=== PATIENT | female | born 1930 | race Caucasian/White ===

== ENCOUNTER 2018-01-05 17:28 | Emergency (ER) | payer OTHER ==
[~2018-01-05] VITALS: Ht 162.6 cm; Wt 77.1 kg
[~2018-01-05 17:28] MED LIST: ESCITALOPRAM10 MG PO; LEVOTHYROXINE0.15 M1 PO; LOSARTAN POTAS100 MG PO; TRAMADOL50 MG PO
[2018-01-05 18:21] LABS: ABSOLUTE BASOPHIL COUNT 0 /CUMM (0.0-0.2); ABSOLUTE EOSINOPHIL COUNT 0 /CUMM (0.0-0.7); ABSOLUTE GRANULOCYTE CT 3.8 /CUMM (1.4-6.5); ABSOLUTE LYMPH COUNT 1.2 /CUMM (1.2-3.4); ABSOLUTE MONOCYTE COUNT 0.6 /CUMM (0.10-0.60); BASOPHIL % 0.8 % (0.0-2.0); EOSINOPHIL % 0.6 % (0-5); GRANULOCYTE % 66.2 % (42.2-75.2); HEMATOCRIT 41.8 % (37-47); MEAN CORPUSCULAR HGB 30.9 PG (27.0-31.0); MEAN CORPUSCULAR HGB CONC 33.1 G/DL (33.0-37.0); MEAN CORPUSCULAR VOLUME 93.3 FL (81.0-99.0); MEAN PLATELET VOLUME 7.4 FL (7.4-10.4); PLATELET COUNT 235 /CUMM (130-400); RBC DISTRIBUTION WIDTH 15.6 % (11.5-14.5); RED BLOOD CELL CT 4.48 /CUMM (4.20-5.40); WHITE BLOOD CELL COUNT 5.7 /CUMM (4.8-10.8)
--- NOTE | 2018-01-05 19:39 | ED GI/GU/ABDOMINAL COMPLAINT ---
History of Present Illness General Chief Complaint: Abdominal Pain/Flank Pain Stated Complaint: ABD PAIN Source: patient, family Exam Limitations: no limitations Vital Signs & Intake/Output Vital Signs & Intake/Output Vital Signs Date Time Temp Pulse Resp B/P B/P Pulse O2 O2 Flow FiO2 Mean Ox Delivery Rate 01/05 2123 86 18 187/82 95 Room Air 01/053 90 16 200/95 96 Room Air 01/05 1754 97.1 76 18 192/94 94 Room Air Room Air Allergies Coded Allergies: NO KNOWN ALLERGIES (05/09/11) Reconcile Medications Escitalopram Oxalate 10 MG TABLET 1 TAB PO DAILY MENTAL HEALTH (Reported) Levothyroxine Sodium 0.15 MG TAB 1 TAB PO DAILY AC THYROID (Reported) Losartan Potassium 100 MG TABLET 1 TAB PO DAILY HEART (Reported) TRAMADOL HCL (Tramadol) 50 MG TAB 1 TAB PO Q6HR PRN PAIN Triage Note: TRIAGE: 87 Y/O FEMALE PRESENTS C/O 10/10 LEFT LOWER ABDOMINAL PAIN SINCE 0500 THIS MORNING. REPORTS "I THOUGHT IT WAS GAS. BUT IT'S NOT." Triage Nurses Notes Reviewed? yes ? N Is pt currently ? No Onset: Gradual Duration: getting worse Timing: recent history Quality/Severity: sharpness, severe, stabbing Severity Numbers: 7 Location: left lower quadrant Radiation: no radiation HPI: Patient is a 87-year-old female with a past medical history of left-sided breast cancer in remission, hypothyroidism hypertension who presents emergency room with a 5-7 day history of gradually worsening waxing and waning left lower quadrant abdominal localized pain. Last bowel movement was yesterday no blood no melena noted. Denies any fever chills chest pain shortness breath back pain dysuria hematuria vaginal bleeding or discharge Patient last received colonoscopy by Dr. COON approximateLY 4 years ago with unremarkable findings patient can tolerate by mouth with no change in symptoms (Erlinda JIMENEZ,Toro) Past History Travel History Traveled to [place] past 21 day No Medical History Any Pertinent Medical History? see below for history Neurological: NONE EENT: NONE Cardiovascular: hypertension Respiratory: NONE Gastrointestinal: diverticulitis, irritable bowel syndrome, pancreatitis Hepatic: NONE Renal: NONE Musculoskeletal: BILATERAL KNEE REPLACE Psychiatric: NONE Endocrine: HYPOTHYROIDISM Blood Disorders: NONE Cancer(s): NONE QUALITY CONTROL CHEMIST/Reproductive: NONE Tetanus Vaccine: 06/07/15 Surgical History Surgical History: appendectomy, knee replacement (B/L) Psychosocial History What is your primary language Chinese Tobacco Use: Never used ETOH Use: denies use Illicit Drug Use: denies illicit drug use Family History Hx Contributory? No (Toro Nova) Review of Systems Review of Systems Constitutional: Reports: no symptoms. EENTM: Reports: no symptoms. Respiratory: Reports: no symptoms. Cardiovascular: Reports: no symptoms. GI: Reports: see HPI, abdominal pain. Genitourinary: Reports: no symptoms. Musculoskeletal: Reports: no symptoms. Skin: Reports: no symptoms. Neurological/Psychological: Reports: no symptoms. Hematologic/Endocrine: Reports: no symptoms. Immunologic/Allergic: Reports: no symptoms. All Other Systems: Reviewed and Negative (Toro Nova) Physical Exam Physical Exam General Appearance: no apparent distress, alert, comfortable Head: atraumatic Eyes: Bilateral: normal appearance. Ears, Nose, Throat, Mouth: moist mucous membrane Neck: normal inspection Respiratory: normal breath sounds, chest non-tender Cardiovascular: regular rate/rhythm Gastrointestinal: normal bowel sounds, soft, LLQ PAIN, NO REBOUND TENDERNESS Extremities: normal range of motion Core Measures ACS in differential dx? No Sepsis Present: No Sepsis Focused Exam Completed? No (Toro Nova) Progress Differential Diagnosis: AAA, AMI, biliary colic, bowel obstruction, colon cancer , cholecystitis, diverticulitis, endometritis, esophageal varices, gastritis, hepatitis, hernia, hemorrhoids, ischemic bowel, inflamm bowel dis, kidney stone, pancreatitis, PID/cervicitis, peptic ulcer, perforated viscous, SBO, UTI/pyelo Plan of Care: Orders Procedure Date/time Status LIPASE 01/05 175 Complete COMPREHENSIVE METABOLIC PANEL 01/05 1757 Complete CBC WITHOUT DIFFERENTIAL 01/05 1757 Complete AMYLASE 01/05 175 Complete Current Medications Sig/Jordan Start time Last Medication Dose Stop Time Status Admin Amoxicillin/ 500 MG ONCE ONE 01/05 2300 UNVr 01/05 Clavulanate Potassium 01/05 2301 2259 (Augmentin) Laboratory Tests 01/05/18 1810: Anion Gap 11, Estimated GFR > 60, BUN/Creatinine Ratio 17.5, Glucose 117 H, Calcium 9.2, Total Bilirubin 0.4, AST 17, ALT 30, Alkaline Phosphatase 69, Total Protein 7.1, Albumin 4.3, Globulin 2.8, Albumin/Globulin Ratio 1.5, Amylase 61, Lipase 62, CBC w Diff NO MAN DIFF REQ, RBC 4.48, MCV 93.3, MCH 30.9, MCHC 33.1, RDW 15.6 H, MPV 7.4, Gran % 66.2, Lymphocytes % 21.7, Monocytes % 10.7 H, Eosinophils % 0.6, Basophils % 0.8, Absolute Granulocytes 3.8, Absolute Lymphocytes 1.2, Absolute Monocytes 0.6, Absolute Eosinophils 0, Absolute Basophils 0 Patient on initial presentation was in no apparent distress resting comfortable at bedside afebrile nontoxic appearing however has left lower quadrant pain CT scan currently is pending blood work was unremarkable patient can tolerate by mouth PT WAS UPDATED ON BLOODWORK CT scan currently is pending discussed handoff with Dr. Perdomo Initial ED EKG: none Hand-Off Endorsed To: Matti Perdomo MD Endorsed Time: 2016 Pending: CT (Toro Nova) Comments: PT AND HER HAVE BEEN UPDATED ON CT AND LABS RESULTS. QUESTIONS HAVE BEEN ANSWERED. (Matti Perdomo MD) Departure Departure Condition: Stable Referrals: Niraj Sims MD (PCP/Family) Departure Forms: Customer Survey General Discharge Information (Toro Nova) Departure Disposition: HOME OR SELF CARE Clinical Impression Primary Impression: Abdominal pain Secondary Impressions: Diverticulitis Additional Instructions: TAKE ANTIBIOTICS PRESCRIBED RETURN IF PAIN WORSENS OR FOR ANY CONCERNS FOLLOW UP WITH YOUR REGULAR DOCTOR Prescriptions: Current Visit Scripts Amoxicillin/Potassium Clav (Augmentin 875-125 Tablet) 1 TAB PO BID #20 TAB PA/SPARKER AND PATCHER Co-Sign Statement Statement: ED Attending supervision documentation- [X] I saw and evaluated the patient. I have also reviewed all the pertinent lab results and diagnostic results. I agree with the findings and the plan of care as documented in the PA's/SPARKER AND PATCHER's documentation. [X] I have reviewed the ED Record and agree with the PA's/SPARKER AND PATCHER's documentation. [] Additions or exceptions (if any) to the PAs/SPARKER AND PATCHER's note and plan are summarized below: [] (Leanne HEATON,Matti Mcmanus)
[2018-01-05 21:23] VITALS: BP 187/82
--- NOTE | 2018-01-05 21:54 | CT SCAN REPORT ---
EXAMINATION: CT ABDOMEN AND PELVIS WITH CONTRAST CLINICAL INFORMATION: Left lower quadrant pain. Question diverticulitis. COMPARISON: 02/02/2016 TECHNIQUE: Multidetector volumetric imaging was performed of the abdomen and pelvis following IV administration of 94 mL of Optiray 320 intravenous contrast. Sagittal and coronal reformatted images were obtained on the technologist's workstation. FINDINGS: LUNG BASES: The visualized lung bases are unremarkable. LIVER, GALLBLADDER, AND BILIARY TREE: The liver is normal in size, shape, and attenuation. No focal hepatic lesion or biliary ductal dilatation is present. There are 2 gallstones present. No evidence of wall thickening, or obvious pericholecystic inflammatory changes. PANCREAS: Normal attenuation of the pancreas, without subjacent inflammatory changes. There is a fluid attenuation cyst posterior to the body/tail junction of the pancreas measuring 4.6 cm, previously measuring 4.9 cm. SPLEEN: Unremarkable. Small splenule present. ADRENAL GLANDS: Stable bulky left adrenal gland. Right adrenal gland appears unremarkable. KIDNEYS AND URETERS: The kidneys are normal in size, shape, and attenuation. No hydronephrosis, hydroureter, or calculi seen. No perinephric stranding. BLADDER: Unremarkable. GASTROINTESTINAL TRACT: Extensive diverticulosis of the sigmoid colon. There is mild haziness in the fat in the deep pelvis, which may reflect minimal changes of diverticulitis. No focal fluid collections. No free air. No bowel obstruction. ABDOMINAL WALL: No significant hernia is appreciated. LYMPH NODES: No pathologically enlarged lymph nodes are seen. VASCULAR: Extensive vascular calcification. Normal caliber aorta. PELVIC VISCERA: Uterus has been removed. No adnexal masses. OSSEOUS STRUCTURES: Degenerative changes of the spine. IMPRESSION: 1. Sigmoid diverticulosis, with possible mild changes of early diverticulitis. 2. Thin-walled 4.6 cm cyst posterior to the pancreas, slightly smaller as compared to previous. 3. Cholelithiasis without cholecystitis.
[2018-01-05] MEDS ORDERED: AUGMENTIN 875-1 EACH PO (23:00)
== END 2018-01-05 23:08 ==
LOC: ERH 17:28
PROVIDERS: Emergency Medicine
DX: K57.92 Diverticulitis of intestine, part unspecified, without perforation or abscess without bleeding (principal); I10 Essential (primary) hypertension; E03.9 Hypothyroidism, unspecified
CPT/HCPCS: 74177; 96374; 96375; J2405; J3490

== ENCOUNTER 2018-05-13 14:32 | Emergency (ER) | payer OTHER ==
[~2018-05-13] VITALS: Ht 165.1 cm; Wt 72.6 kg
[~2018-05-13 14:32] MED LIST changes: +AUGMENTIN 875-1 EACH PO
[2018-05-13 14:36] VITALS: BP 185/78
--- NOTE | 2018-05-13 17:18 | CT SCAN REPORT ---
EXAMINATION: CT ABDOMEN AND PELVIS WITHOUT CONTRAST CT LUMBAR SPINE WITHOUT CONTRAST CLINICAL INFORMATION: Lower back pain radiating to bilateral legs. COMPARISON: 01/05/2018 TECHNIQUE: A noncontrast CT of the abdomen and pelvis was performed with sagittal and coronal reformats. A noncontrast CT of the lumbar spine was performed with sagittal and coronal reformats. TOTAL DLP: 1144 mGy-cm FINDINGS: CT ABDOMEN AND PELVIS: The visualized lung bases are clear. Redemonstration of a gallstone without biliary ductal dilatation. The unenhanced liver, spleen, adrenal glands, and kidneys are unremarkable. No hydronephrosis or renal calculi. The pancreas appears normal. Redemonstration of a 4.8 cm cyst or pseudocyst along the posterior inferior aspect of the pancreatic tail. No change. Prominent sigmoid diverticulosis. No focal inflammatory process or obstruction. No adenopathy or ascites. Diffuse atherosclerotic calcifications. Small coarse calcifications in the right pelvis may be of adnexal origin, unchanged. The uterus is absent. CT LUMBAR SPINE: Normal lumbar lordosis and alignment. [id number] degenerative disc disease throughout the lumbar spine, with disc space narrowing most pronounced at L2-L3. There is no acute fracture. Diffuse facet arthropathy and degenerative change at the junction of the spinous processes. There is chondrocalcinosis along the ligamentum flavum and posterior disc margins, with bulging at L2-L3, L3-L4, and L4-L5. There is associated pysb-ws-vlrlfiyc narrowing of the central canal and neural foramina, most prominently involving the right L3-L4 neural foramen. This is unchanged. IMPRESSION: CT LUMBAR SPINE: Ijbh-lq-vxxmwffn degenerative disc disease and moderate-severe facet arthropathy throughout the lumbar spine with associated central and neural foraminal narrowing, most prominent on the right at L3-L4. An MRI would better evaluate for stenoses or disc protrusions as a cause of radiculopathy. No acute osseous abnormality. CT ABDOMEN AND PELVIS: 1. Extensive atherosclerotic calcifications. 2. Redemonstration of a simple-appearing, 4.8 cm cyst/pseudocyst along the pancreatic tail. No change. 3. Cholelithiasis. 4. No hydronephrosis.
--- NOTE | 2018-05-13 17:35 | ED GENERAL ADULT ---
History of Present Illness General Chief Complaint: Lower Extremity Injury Stated Complaint: SENT IN BY MD FOR BACK PAIN AND L LEG PAIN Source: patient Exam Limitations: no limitations Vital Signs & Intake/Output Vital Signs & Intake/Output Vital Signs Date Time Temp Pulse Resp B/P B/P Pulse O2 O2 Flow FiO2 Mean Ox Delivery Rate 05/13 1707 Room Air 05/13 1436 97.7 102 18 185/78 95 Room Air Room Air ED Intake and Output 05/14 0000 05/13 1200 Intake Total Output Total Balance Patient 160 lb Weight Weight Reported by Patient Measurement Method Allergies Coded Allergies: NO KNOWN ALLERGIES (05/09/11) Reconcile Medications Amoxicillin/Potassium Clav (Augmentin 875-125 Tablet) 875 MG-125 MG TABLET 1 TAB PO BID DIVERTICULITIS Baclofen 20 MG TABLET 1 TAB PO TID PRN PAIN Escitalopram Oxalate 10 MG TABLET 1 TAB PO DAILY MENTAL HEALTH (Reported) Levothyroxine Sodium 0.15 MG TAB 1 TAB PO DAILY AC THYROID (Reported) Losartan Potassium 100 MG TABLET 1 TAB PO DAILY HEART (Reported) Methylprednisolone. (Medrol) 4 MG TAB.DS.PK 1 DP PO AD SCIATICA 6 on day 1 then reduce by one tablet daily until gone Tramadol HCl 50 MG TABLET 1 TAB PO Q6P PRN PAIN TRAMADOL HCL (Tramadol) 50 MG TAB 1 TAB PO Q6HR PRN PAIN Triage Note: PT TO ED WITH C/O "PAIN TO MY TAILBONE, RADIATING TO BOTH CHEEKS". PT AMBULATORY INTO TRIAGE, DENIES FALL OR INJURY TO THE AREA. WENT TO DR MCGOWAN OFFICE AND SENT IN FOR CT OF LUMBAR SPINE. Triage Nurses Notes Reviewed? yes Onset: Abrupt Duration: week(s): (2), constant, continues in ED, getting worse Timing: single episode today Injury Environment: home Severity: moderate, severe Severity Numbers: 7 No Modifying Factors: none LMP (ages 10-50): post menopausal : No Patient currently breastfeeds: No HPI: 88 year female history of osteoarthritis, hypertension presents for evaluation of back pain. Patient reports that symptoms first started about 2 weeks ago and been persistent. She reports pain is located on both sides of her lower back and radiates into her bilateral but and upper legs. The pain is worse with movement and certain positions. She feels like she cannot sit for long periods of time. There is no trauma or triggering event. She has no history of cancer. No numbness or tingling no bowel or bladder dysfunction no abdominal pain chest pain fever or shortness of breath. She's been taking Tylenol without any improvement. She went to her primary care doctor's office today and was referred here for imaging. She reports that she has had similar symptoms in the past but never this severe and persistent. She is walking without difficulty. (Akbar Buchanan) Past History Travel History Traveled to [place] past 21 day No Medical History Any Pertinent Medical History? see below for history Neurological: NONE EENT: NONE Cardiovascular: hypertension Respiratory: NONE Gastrointestinal: diverticulitis, irritable bowel syndrome, pancreatitis Hepatic: NONE Renal: NONE Musculoskeletal: BILATERAL KNEE REPLACE Psychiatric: NONE Endocrine: HYPOTHYROIDISM Blood Disorders: NONE Cancer(s): NONE CALCINE FURNACE TENDER/Reproductive: NONE Tetanus Vaccine: 06/07/15 Surgical History Surgical History: appendectomy, knee replacement (B/L) Psychosocial History What is your primary language Indonesian Tobacco Use: Never used ETOH Use: denies use Illicit Drug Use: denies illicit drug use Family History Hx Contributory? No (Akbar Buchanan) Review of Systems Review of Systems Constitutional: Reports: no symptoms. EENTM: Reports: no symptoms. Respiratory: Reports: no symptoms. Cardiovascular: Reports: no symptoms. GI: Reports: no symptoms. Genitourinary: Reports: no symptoms. Musculoskeletal: Reports: see HPI, back pain, muscle pain, muscle stiffness. Skin: Reports: no symptoms. Neurological/Psychological: Reports: no symptoms. Hematologic/Endocrine: Reports: no symptoms. Immunologic/Allergic: Reports: no symptoms. All Other Systems: Reviewed and Negative (Akbar Buchanan) Physical Exam Physical Exam General Appearance: well developed/nourished, no apparent distress, alert, awake Head: atraumatic, normal appearance Eyes: Bilateral: normal appearance, PERRL, EOMI. Ears, Nose, Throat: hearing grossly normal Neck: normal inspection, supple, full range of motion Respiratory: normal breath sounds, chest non-tender, no respiratory distress, lungs clear Cardiovascular: regular rate/rhythm, normal peripheral pulses Peripheral Pulses: 2+ radial (R), 2+ radial (L) Gastrointestinal: soft, non-tender Back: normal inspection, normal range of motion, LUMBAR SPINE AND PARASPINAL MUSCLES TENDER TO PALPATION BILATERALLY NO STEP-OFFS OR DEFORMITIES NO PREVIOUS SWELLING AND ABRASIONS OR RASHES Extremities: normal inspection, normal range of motion, no edema, straight leg raised (POSITIVE BILATERALLY) Neurologic/Psych: no motor/sensory deficits, awake, alert, oriented x 3, normal gait Skin: intact, normal color, warm/dry Lymphatic: no anterior cervical shon Core Measures ACS in differential dx? No CVA/TIA Diagnosis: No Sepsis Present: No Sepsis Focused Exam Completed? No (Steven JIMENEZ,Akbar) Progress Differential Diagnoses I considered the following diagnoses in my evaluation of the patient: [Sciatica, osteoarthritis, muscle strain, compression fracture, malignancy, cauda equina, herniated disc] Plan of Care: Current Medications Sig/Jordan Start time Last Medication Dose Stop Time Status Admin Acetaminophen 975 MG ONCE ONE 05/13 1745 AC (Tylenol) 05/13 1746 Patient is here with bilateral lower back pain. The pain is reproducible with range of motion and positioning. She's had it for 2 weeks. No history of malignancy no bowel or bladder dysfunction no saddle paresthesias. Patient is medicated with Tylenol. CT scans of the abdomen and pelvis and lumbar spine ordered. Patient has a steady gait. No difficulty walking. CT scans of the abdomen and pelvis does not show any acute findings. Lumbar spine CT does show some foraminal and neuronal stenosis. No fractures. Patient is given a prescription for Medrol Dosepak tramadol and baclofen. Advised rest avoid heavy lifting bending or physical activity. She'll be referred to neurosurgery and orthopedics. Discussed return precautions patient agrees the plan Diagnostic Imaging: Viewed by Me: CT Scan. Discussed w/RAD: CT Scan. Initial ED EKG: none Comments: PATIENT: HANY COLLINS PRESENT AGE: 88 PATIENT ACCOUNT NO: [id number] : 32 LOCATION: [facility] ORDERING PHYSICIAN: Akbar JIMENEZ SERVICE DATE: 05/13/18 EXAM TYPE: CAT - CT ABD & PELVIS W/O IV CONTRAS; CT LUMB SPINE WO IV CONTRAST EXAMINATION: CT ABDOMEN AND PELVIS WITHOUT CONTRAST CT LUMBAR SPINE WITHOUT CONTRAST CLINICAL INFORMATION: Lower back pain radiating to bilateral legs. COMPARISON: 01/05/2018 TECHNIQUE: A noncontrast CT of the abdomen and pelvis was performed with sagittal and coronal reformats. A noncontrast CT of the lumbar spine was performed with sagittal and coronal reformats. TOTAL DLP: 1144 mGy-cm FINDINGS: CT ABDOMEN AND PELVIS: The visualized lung bases are clear. Redemonstration of a gallstone without biliary ductal dilatation. The unenhanced liver, spleen, adrenal glands, and kidneys are unremarkable. No hydronephrosis or renal calculi. The pancreas appears normal. Redemonstration of a 4.8 cm cyst or pseudocyst along the posterior inferior aspect of the pancreatic tail. No change. Prominent sigmoid diverticulosis. No focal inflammatory process or obstruction. No adenopathy or ascites. Diffuse atherosclerotic calcifications. Small coarse calcifications in the right pelvis may be of adnexal origin, unchanged. The uterus is absent. CT LUMBAR SPINE: Normal lumbar lordosis and alignment. Rbtf-lw-imgmykeo degenerative disc disease throughout the lumbar spine, with disc space narrowing most pronounced at L2-L3. There is no acute fracture. Diffuse facet arthropathy and degenerative change at the junction of the spinous processes. There is chondrocalcinosis along the ligamentum flavum and posterior disc margins, with bulging at L2-L3, L3-L4, and L4-L5. There is associated eoqb-lj-[id number] narrowing of the central canal and neural foramina, most prominently involving the right L3-L4 neural foramen. This is unchanged. IMPRESSION: CT LUMBAR SPINE: Tafb-bg-ownsjwlm degenerative disc disease and moderate-severe facet arthropathy throughout the lumbar spine with associated central and neural foraminal narrowing, most prominent on the right at L3-L4. An MRI would better evaluate for stenoses or disc protrusions as a cause of radiculopathy. No acute osseous abnormality. CT ABDOMEN AND PELVIS: 1. Extensive atherosclerotic calcifications. 2. Redemonstration of a simple-appearing, 4.8 cm cyst/pseudocyst along the pancreatic tail. No change. 3. Cholelithiasis. 4. No hydronephrosis. DICTATED BY: Anil Kinsey MD DATE/TIME DICTATED:05/13/181606 INTERNATIONAL ACCOUNT EXECUTIVE:DARYN DATE/TIME TRANSCRIBED:05/13/181606 CONFIDENTIAL, DO NOT COPY WITHOUT APPROPRIATE AUTHORIZATION. <Electronically signed in Other Vendor System> (Akbar Buchanan) Departure Departure Disposition: HOME OR SELF CARE Condition: Stable Clinical Impression Primary Impression: Sciatica Qualifiers: Laterality: bilateral Qualified Codes: M54.31 - Sciatica, right side; M54.32 - Sciatica, left side Referrals: Freda HEATON,Femi Mcgowan MD,Niraj (PCP/Family) Gill HEATON,Pedrito Mcfadden Additional Instructions: Rest, avoid heavy lifting bending or excessive physical activity. Continue Tylenol 1000 mg every 6 hours as needed for pain. Take Medrol Dosepak as directed for the full course. Baclofen is a muscle relaxer that can be used every 8 hours as needed. Tramadol for severe pain only these may cause drowsiness. Monitor symptoms return with any concerns. Make a follow-up appointment with YOUr primary care doctor and provided neurosurgeon and orthopedic surgeon as soon as possible. Departure Forms: Customer Survey General Discharge Information Prescriptions: Current Visit Scripts Methylprednisolone. (Medrol) 1 DP PO AD #1 DP 6 on day 1 then reduce by one tablet daily until gone Baclofen 1 TAB PO TID PRN PAIN #30 TAB Tramadol HCl 1 TAB PO Q6P PRN PAIN #10 TAB (Akbar Buchanan) PA/SURGICAL TRAINING SPECIALIST Co-Sign Statement Statement: ED Attending supervision documentation- x I saw and evaluated the patient. I have also reviewed all the pertinent lab results and diagnostic results. I agree with the findings and the plan of care as documented in the PA's/SURGICAL TRAINING SPECIALIST's documentation. [] I have reviewed the ED Record and agree with the PA's/SURGICAL TRAINING SPECIALIST's documentation. [] Additions or exceptions (if any) to the PAs/SURGICAL TRAINING SPECIALIST's note and plan are summarized below: [] (Alice HEATON,Franko) Critical Care Note Critical Care Note Critical Care Time: non-applicable (Akbar Buchanan)
[2018-05-13] MEDS ORDERED: TRAMADOL HCL50 M1 PO (17:38)
[2018-05-13] MEDS ORDERED: BACLOFEN20 M1 PO (17:38)
[2018-05-13] MEDS ORDERED: MEDROL4 M2 PO (17:38)
== END 2018-05-13 17:42 ==
LOC: ERH 14:32
DX: M54.41 Lumbago with sciatica, right side (principal); M54.42 Lumbago with sciatica, left side
CPT/HCPCS: 74176